=== PATIENT | female | born 1965 | race Caucasian/White ===

== ENCOUNTER → 2017-01-17 | Outpatient (CLI) | payer MEDICAID, OTHER ==
--- NOTE | 2017-01-17 11:18 | USB ---
Reason for exam: follow-up at short interval from prior study. History: Patient had first child at age 33. Benign US biopsy breast VAD RT of the right breast, July 09, 2016. Benign excisional biopsy of the left breast, 2007. Took hormonal contraceptives for 8 years beginning at age 21. Physical Findings: Nurse did not find any significant physical abnormalities on exam. US Breast BILAT Right breast ultrasound includes all four quadrants, the retroareolar region and axilla. Finding demonstrates a 0.4 x 0.3 x 0.3cm round, hypoechoic lesion at 12 o'clock for which a 6 month follow up is recommended, a 0.5 x 0.6 x 0.2cm oval, mixed lesion at 7 o'clock verses 6 x 8 x 4mm previously compatible with cyst cluster decreased in size and the 7 o'clock biopsied fibroadenoma is no longer seen. Left breast ultrasound includes all four quadrants, the retroareolar region and axilla. Finding demonstrates a 0.7 x 0.7 x 0.2cm mixed lesion at 8 o'clock verses a 8 x 9 x 4mm previously, cyst cluster now decreased in size and a 0.6 x 0.7 x0.7cm mixed lesion at the posterior nipple, not seen previously, for which a biopsy is recommended. These results were verbally communicated with the patient and result sheet given to the patient on 01/17/17. ASSESSMENT: Suspicious, BI-RAD 4 RECOMMENDATION: 1. Surgical consultation and ultrasound core biopsy of the left breast. 2. A 6 month follow up ultrasound right breast for the 12:00 lesion. Called with mammographic findings and has scheduled an appointment for the patient for 01/31/17 at 2:20pm with Dr. Jennings. PRELIMINARY REPORT CALLED AND FAXED TO DR. JENNINGS ON 01/17/17 AT 300/TMP. [facility]
== END ==
LOC: RADUSWWP 09:03
PROVIDERS: ATTEND Surgery
DX: R92.8 Other abnormal and inconclusive findings on diagnostic imaging of breast (principal)

== ENCOUNTER → 2017-01-31 | Day surgery (SDC) | payer MEDICAID, OTHER ==
[~2017-01-31] MED LIST: BACITRACIN OINT 1 EACH PACKET TOPICAL ONE; LIDOCAINE 1% INJ 10MG/ML (20 ML MDV) ONE; LIDOCAINE 1%-EPI 1:100,000 20 ML VIAL ONE; SODIUM BICARB 4% 5 ML VIAL (0.48 MEQ/ML) ONE
--- NOTE | 2017-01-31 13:13 | USB ---
EXAMINATION TYPE: US biopsy breast VAD LT, MG diagnostic mammo LT wo CAD DATE OF EXAM: 01/31/2017 12:55 PM CLINICAL HISTORY: R92.8 Abnormal Mammogram. Abnormal ultrasound. TECHNIQUE: Ultrasound guided core biopsy of left breast with clip placement and follow-up two-view mammogram. COMPARISON: Complete breast ultrasound January 17, 2017 and older studies. FINDINGS: The procedure of ultrasound guided core biopsy was explained to the patient. Benefits, alternatives, and risks were discussed. An informed consent was then obtained. The patient was placed in supine positioning for imaging and for the procedure. Preprocedure imaging redemonstrates overall slightly ill-defined heterogeneous hypoechoic lesion measuring 1.2 cm on long axis subareolar region. The overlying skin was prepped and draped in usual sterile fashion. Lidocaine buffered with bicarbonate was used as anesthetic into the skin. Lidocaine with epinephrine is used as anesthetic into the deeper tissue up to area of concern in the left breast. Under ultrasound guidance, a 12-gauge vacuum assisted biopsy gun device was used to obtain 4 core samples. Following this, a biopsy clip was left in lesion. The patient tolerated the procedure well without any immediate complication. The patient was kept in the radiology department for short stay after the procedure and then discharged home in stable condition. Postprocedure mammogram shows successful deployment of clip this is near area of concern on original 3-D mammogram June 10, 2016 IMPRESSION: Successful, uncomplicated ultrasound guided core biopsy of area of concern in the left breast, full pathology results to follow. Intermediate index of suspicion noted at time of procedure. Pathology Results: Benign BREAST, LEFT, ULTRASOUND GUIDED CORE BIOPSY: CORES OF FIBROADENOMA WITH FIBROCYSTIC CHANGE (CYST FORMATION, APOCRINE METAPLASIA, ADENOSIS, AND DUCT HYPERPLASIA) Recommendation Follow up ultrasound of both breasts in 6 months. (6 month follow up right breast ultrasound for the 12 o'clock lesion as mentioned on 01/17/17) KATE
== END ==
LOC: RADUSWWP 12:07
PROVIDERS: ATTEND Surgery
DX: D24.2 Benign neoplasm of left breast (principal); N60.02 Solitary cyst of left breast; N60.82 Other benign mammary dysplasias of left breast; N60.22 Fibroadenosis of left breast; N60.92 Unspecified benign mammary dysplasia of left breast; R92.8 Other abnormal and inconclusive findings on diagnostic imaging of breast
CPT/HCPCS: 88305; 19083; G0206; A4648; J2001

== ENCOUNTER → 2017-08-29 | Outpatient (CLI) | payer MEDICAID ==
--- NOTE | 2017-08-29 11:33 | MM ---
Reason for exam: follow-up at short interval from prior study. Last mammogram was performed 7 months ago. History: Patient had first child at age 33. Benign US biopsy breast VAD LT of the left breast, January 31, 2017. Benign US biopsy breast VAD RT of the right breast, July 09, 2016. Benign excisional biopsy of the left breast, 2007. Taking hormonal contraceptives for 12 years beginning at age 21. Physical Findings: Nurse did not find any significant physical abnormalities on exam. MG 3D Diag Mammo W/Cad POWER Bilateral CC and MLO view(s) were taken. Prior study comparison: January 31, 2017, left breast MG diagnostic mammo LT wo CAD. July 09, 2016, right breast MG diagnostic mammo RT wo CAD. The breast tissue is heterogeneously dense. This may lower the sensitivity of mammography. Previous mammotome biopsy in the right and left breast. Nodular asymmetry central right breast on the MLO view at a middle depth appears more defined. Otherwise, no significant change. These results were verbally communicated with the patient and result sheet given to the patient on 08/29/17. ASSESSMENT: Incomplete: need additional imaging evaluation, BI-RAD 0 RECOMMENDATION: Ultrasound of both breasts. (right breast for the asymmetry, left breast follow up after benign biopsy)
--- NOTE | 2017-08-29 11:42 | USB ---
Reason for exam: additional evaluation requested from abnormal screening. History: Patient had first child at age 33. Benign US biopsy breast VAD LT of the left breast, January 31, 2017. Benign US biopsy breast VAD RT of the right breast, July 09, 2016. Benign excisional biopsy of the left breast, 2007. Taking hormonal contraceptives for 12 years beginning at age 21. US Breast BILAT Technologist: Leela Kaplan Right breast ultrasound includes all four quadrants, the retroareolar region and axilla. Finding demonstrates a 0.4 x 0.3 x 0.4cm hypoechoic lesion at 12 o'clock, stable, can be reassessed again in 6 months, a 0.5 x 0.2 x 0.5cm mixed lesion at 7 o'clock versus 5 x 3 x 7mm previously, likely cyst cluster, a 0.6 x 0.4 x 0.7cm hypoechoic solid appearing lesion at 7 o'clock, new, 6 month follow up recommended and a 0.9 x 0.3 x 0.7cm hypoechoic lesion at 9 o'clock, possibly a cyst with artifact or debris, new for which a 6 month follow up is recommended. Left breast ultrasound includes all four quadrants, the retroareolar region and axilla. Finding demonstrates a 0.6 x 0.3 x 0.6cm mixed lesion at 8 o'clock versus 7 x 3 x 7mm likely cyst cluster at 8 o'clock and a 0.7 x 0.8 x 0.6cm mixed lesion at the posterior nipple, biopsied, benign. These results were verbally communicated with the patient and result sheet given to the patient on 08/29/17. ASSESSMENT: Probably benign, BI-RAD 3 RECOMMENDATION: Follow-up diagnostic mammogram and ultrasound of the right breast in 6 months.
== END | disposition home or self-care (01) ==
LOC: RADMAMWWP 07:34
PROVIDERS: ATTEND Surgery
DX: N63.10 Unspecified lump in the right breast, unspecified quadrant (principal)
CPT/HCPCS: 76641; G0204; G0279

== ENCOUNTER → 2018-02-27 | Outpatient (CLI) | payer MEDICAID ==
--- NOTE | 2018-02-27 11:28 | MM ---
Reason for exam: additional evaluation requested from prior study. Last mammogram was performed 6 months ago. History: Patient had first child at age 33. Benign US biopsy breast VAD LT of the left breast, January 31, 2017. Benign US biopsy breast VAD RT of the right breast, July 09, 2016. Benign excisional biopsy of the left breast, 2007. Taking hormonal contraceptives beginning at age 21. 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 MG 3D Diag Mammo W/Cad POWER Bilateral CC and MLO view(s) were taken. Prior study comparison: August 29, 2017, bilateral MG 3d diag mammo w/cad POWER. January 31, 2017, left breast MG diagnostic mammo LT wo CAD. The breast tissue is heterogeneously dense. This may lower the sensitivity of mammography. Previous mammotome biopsy in the right and left breast. Palpable marker right upper outer quadrant. No significant new findings when compared with previous films. These results were verbally communicated with the patient and result sheet given to the patient on 02/27/18. ASSESSMENT: Incomplete: need additional imaging evaluation, BI-RAD 0 RECOMMENDATION: Ultrasound of both breasts.
--- NOTE | 2018-02-27 11:34 | USB ---
Reason for exam: follow-up at short interval from prior study. History: Patient had first child at age 33. Benign US biopsy breast VAD LT of the left breast, January 31, 2017. Benign US biopsy breast VAD RT of the right breast, July 09, 2016. Benign excisional biopsy of the left breast, 2007. Taking hormonal contraceptives beginning at age 21. US Breast BILAT Right complete breast ultrasound includes all four quadrants, the retroareolar region and axilla. Finding demonstrates a 0.3 x 0.4 x 0.4cm hypoechoic lesion at 12 o'clock stable for a year, benign, a 0.4 x 0.2 x 0.4cm mixed lesion at 7 o'clock, stable, likely cyst cluster, a 0.5 x 0.3 x 0.7cm hypoechoic lesion at 7 o'clock, previously 6 x 4 x 7mm stable to smaller, suggests a benign etiology, a 0.6 x 0.4 x 0.4cm mixed lesion at 9 o'clock, cyst cluster versus complex cyst, not seen previously and a 0.7 x 0.4 x 0.7cm hypoechoic palpable lesion at 9 o'clock, versus 9 x 3 x 7mm previously, now appears as a benign cyst. Left complete breast ultrasound includes all four quadrants, the retroareolar region and axilla. Finding demonstrates a 0.6 x 0.3 x 0.5cm mixed lesion at 8 o'clock versus 6 x 3 x 6mm, stable, benign and a 0.5 x 0.7 x 0.6cm mixed lesion at the posterior nipple with clip, previously biopsied. These results were verbally communicated with the patient and result sheet given to the patient on 02/27/18. ASSESSMENT: Probably benign, BI-RAD 3 RECOMMENDATION: Follow-up diagnostic mammogram of both breasts in 1 year.
== END | disposition home or self-care (01) ==
LOC: RADMAMWWP 08:51
PROVIDERS: ATTEND Surgery
DX: N63.10 Unspecified lump in the right breast, unspecified quadrant (principal); N63.20 Unspecified lump in the left breast, unspecified quadrant; R92.8 Other abnormal and inconclusive findings on diagnostic imaging of breast
CPT/HCPCS: 77062; 77066

== ENCOUNTER 2019-02-23 07:33 | Day surgery (SDC) | payer MEDICAID, OTHER ==
[2019-02-20 15:32] VITALS: BMI 24.7
[~2019-02-23 07:33] MED LIST changes: -BACITRACIN OINT 1 EACH PACKET TOPICAL ONE; +LACTATED RINGERS 1,000 ML IV SCH; +LIDOCAINE 1% 20 ML VIAL (10MG/ML) FOR IV START INTRADERMA PRN; -LIDOCAINE 1% INJ 10MG/ML (20 ML MDV) ONE; -LIDOCAINE 1%-EPI 1:100,000 20 ML VIAL ONE; -SODIUM BICARB 4% 5 ML VIAL (0.48 MEQ/ML) ONE
[2019-02-23 07:51] VITALS: RESP 16; TEMP 97.8
[2019-02-23] MEDS ORDERED: PROPOFOL 10 MG/ML 20 ML VIAL IV ONE (09:14)
--- NOTE | 2019-02-23 09:21 | P.GSHP ---
History of Present Illness H&P Date: 02/23/19 Chief Complaint: Screening Patient here today for colonoscopy. She has not had one previously. No bowel related complaints. No family history of colon cancer. Past Medical History Past Medical History: Asthma Additional Past Medical History / Comment(s): recent dental work related to infected tooth placed on keflex History of Any Multi-Drug Resistant Organisms: None Reported Past Surgical History: Breast Surgery, Tonsillectomy Past Anesthesia/Blood Transfusion Reactions: Family History of Problems w/ Anesthesia, Postoperative Nausea & Vomiting (PONV) Additional Past Anesthesia/Blood Transfusion Reaction / Comment(s): last surgery when awakening attempted to pull out IV's. mother PONV Smoking Status: Never smoker - Past Family History Father Family Medical History: Cancer Additional Family Medical History / Comment(s): leukemia Medications and Allergies Home Medications Medication Instructions Recorded Confirmed Type ALPRAZolam [Xanax] 0.25 mg PO Q8HR PRN 03/30/16 02/23/19 History Acetaminophen [Tylenol] 325 mg PO Q4H PRN 02/20/19 02/23/19 History Albuterol Inhaler [Ventolin Hfa 1 - 2 puff INHALATION RT-Q6H PRN 02/20/19 02/20/19 History Inhaler] Budesonide/Formoterol Fumarate 2 puff INHALATION BID 02/20/19 02/23/19 History [Symbicort 160-4.5 Mcg Inhaler] Cephalexin [Keflex] 500 mg PO Q6HR 02/20/19 02/23/19 History Multivitamins, Thera [Multivitamin 1 tab PO DAILY 02/20/19 02/20/19 History (formulary)] Allergies Allergy/AdvReac Type Severity Reaction Status Date / Time No Known Allergies Allergy Verified 02/23/19 07:53 Surgical - Exam Vital Signs Temp Pulse Resp BP Pulse Ox 97.8 F 80 16 124/60 98 02/23/19 07:50 02/23/19 07:50 02/23/19 07:50 02/23/19 07:50 02/23/19 07:50 Physical exam: General: Well-developed, well-nourished HEENT: Normocephalic, sclerae nonicteric Abdomen: Nontender, nondistended Extremities: No edema Neuro: Alert and oriented Assessment and Plan (1) Colon cancer screening Narrative/Plan: Will proceed with colonoscopy Current Visit: Yes Status: Acute Code(s): Z12.11 - ENCOUNTER FOR SCREENING FOR MALIGNANT NEOPLASM OF COLON SNOMED Code(s): 842224680
--- NOTE | 2019-02-23 09:42 | P.PCN ---
Date of Procedure: 02/23/19 Procedure(s) Performed: PREOPERATIVE DIAGNOSIS: Colon cancer screening POSTOPERATIVE DIAGNOSIS: Sigmoid colon polyp PROCEDURE: Colonoscopy with snare polypectomy ANESTHESIA: MAC SURGEON: Jose Jennings M.D. SPECIMENS: Sigmoid polyp ENDOSCOPIC PROCEDURE: The patient was placed on the endoscopy table in the left decubitus position. The Olympus colonoscope was inserted into the anus and passed under direct visualization to the base of the cecum. The appendiceal orifice was visualized. From that point the scope was slowly withdrawn inspecting all surfaces carefully. There were no neoplastic inflammatory or polypoid lesions throughout the cecum, ascending, transverse, and descending colon. In the sigmoid colon there was a small polyp that was removed using the snare with cautery technique. No visible diverticulosis. Digital rectal examination was normal. The patient was taken to the recovery room in stable condition per anesthesia guidelines. RECOMMENDATIONS: Await biopsy results.
[2019-02-23 10:00] VITALS: BP 141/87; PULSE 88
== END 2019-02-23 10:32 | disposition home or self-care (01) ==
LOC: ORWHC2ENDO 07:33
PROVIDERS: ATTEND Surgery
DX: Z12.11 Encounter for screening for malignant neoplasm of colon (principal); D12.5 Benign neoplasm of sigmoid colon; J45.909 Unspecified asthma, uncomplicated; Z79.51 Long term (current) use of inhaled steroids; Z79.899 Other long term (current) drug therapy
CPT/HCPCS: 81025; 88305; 45385; J2704

== ENCOUNTER → 2019-03-09 | Outpatient (CLI) | payer MEDICAID, OTHER ==
--- NOTE | 2019-03-09 09:32 | MM ---
Reason for exam: additional evaluation requested from prior study. Last mammogram was performed 1 year ago. History: Patient had first child at age 33. Benign US biopsy breast VAD LT of the left breast, January 31, 2017. Benign US biopsy breast VAD RT of the right breast, July 09, 2016. Benign excisional biopsy of the left breast, 2007. Took hormonal contraceptives for 5 years beginning at age 21. 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 MG 3D Diag Mammo W/Cad POWER Bilateral CC and MLO view(s) were taken. Prior study comparison: February 27, 2018, bilateral MG 3d diag mammo w/cad POWER. August 29, 2017, bilateral MG 3d diag mammo w/cad POWER. The breast tissue is heterogeneously dense. This may lower the sensitivity of mammography. Previous mammotome biopsy in the right and left breast. There is chronic nodularity in the right breast. There is no discrete abnormality. These results were verbally communicated with the patient and result sheet given to the patient on 03/09/19. ASSESSMENT: Incomplete: need additional imaging evaluation, BI-RAD 0 RECOMMENDATION: Ultrasound of the left breast. (palpable by nurse)
--- NOTE | 2019-03-09 09:34 | USB ---
Reason for exam: additional evaluation requested from abnormal screening. History: Patient had first child at age 33. Benign US biopsy breast VAD LT of the left breast, January 31, 2017. Benign US biopsy breast VAD RT of the right breast, July 09, 2016. Benign excisional biopsy of the left breast, 2007. Took hormonal contraceptives for 5 years beginning at age 21. US Breast Limited LT Left limited breast ultrasound including focal area of concern, retroareolar and axilla demonstrates a 5 x 2 x 7mm oval, lobular lesion too small to characterize at 8 o'clock and a 8 x 8 x 10mm lobular, solid, hypoechoic lesion at the posterior nipple, previously biopsied with clip. These results were verbally communicated with the patient and result sheet given to the patient on 03/09/19. ASSESSMENT: Benign, BI-RAD 2 RECOMMENDATION: Routine screening mammogram of both breasts in 1 year.
== END | disposition home or self-care (01) ==
LOC: RADMAMWWP 07:58
PROVIDERS: ATTEND Surgery
DX: R92.8 Other abnormal and inconclusive findings on diagnostic imaging of breast (principal)
CPT/HCPCS: 77062; 77066

== ENCOUNTER → 2020-02-01 | Outpatient (CLI) | payer MEDICAID ==
--- NOTE | 2020-02-01 11:57 | ECHOS ---
STRESS ECHOCARDIOGRAM INDICATIONS: Chest pain. MEDICATIONS: Symbicort, Mobic, vitamin, albuterol. BASELINE HEART RATE: 79 BASELINE BLOOD PRESSURE: 127/86 MAXIMUM HEART RATE: 153 MAXIMUM BLOOD PRESSURE: 179/85 85% MPHR: 143 100% MPHR: 168 METS: 13 MAXIMUM STAGE REACHED: 4 TOTAL EXERCISE TIME: 12:08 CLINICAL INFORMATION: Baseline EKG shows sinus rhythm, normal axis, normal intervals. Patient exercised on Parviz protocol for a total of 12 minutes achieving 15 METS, 85% of predicted maximal heart rate without chest pain or diagnostic ST segment depression. Baseline echo shows normal left ventricular size, wall motion, systolic function post exercise. There is normal hyperdynamic response of all segments of myocardium noted. CONCLUSION: 1. Excellent exercise tolerance. 2. Negative stress test by EKG criteria. 3. Negative stress echo. MMODL / IJN: [id number] /
== END | disposition home or self-care (01) ==
LOC: RADNMMAIN 08:36
PROVIDERS: ATTEND Internal Medicine Cardiovascular Disease
DX: R07.9 Chest pain, unspecified (principal)
CPT/HCPCS: 93351

== ENCOUNTER → 2020-02-08 | Outpatient (CLI) | payer MEDICAID ==
--- NOTE | 2020-02-08 10:12 | XR ---
EXAMINATION TYPE: XR chest 2V DATE OF EXAM: 02/08/2020 COMPARISON: NONE HISTORY: Right-sided chest wall pain intermittently for 2 weeks. History of asthma. TECHNIQUE: Frontal and lateral views of the chest are obtained. FINDINGS: There is no focal air space opacity, pleural effusion, or pneumothorax seen. The cardiac silhouette size is within normal limits. The osseous structures are intact. IMPRESSION: No acute cardiopulmonary process.
== END | disposition home or self-care (01) ==
LOC: RADXRMAIN 09:17
PROVIDERS: ATTEND Family Medicine
DX: R07.9 Chest pain, unspecified (principal); R06.00 Dyspnea, unspecified
CPT/HCPCS: 71046

== ENCOUNTER → 2020-05-20 | Outpatient (CLI) | payer MEDICAID ==
--- NOTE | 2020-05-22 11:27 | MM ---
Reason for exam: screening (asymptomatic). Last mammogram was performed 1 year and 2 months ago. History: Patient is postmenopausal and had first child at age 33. Benign US biopsy breast VAD LT of the left breast, January 31, 2017. Benign US biopsy breast VAD RT of the right breast, July 09, 2016. Benign excisional biopsy of the left breast, 2007. Took hormonal contraceptives for 5 years beginning at age 21. Physical Findings: A clinical breast exam by your physician is recommended on an annual basis and results should be correlated with mammographic findings. MG 3D Screening Mammo W/Cad Bilateral CC and MLO view(s) were taken. Prior study comparison: March 09, 2019, bilateral MG 3d diag mammo w/cad POWER. February 27, 2018, bilateral MG 3d diag mammo w/cad POWER. June 10, 2016, bilateral MG 3d screening mammo w/cad. The breast tissue is heterogeneously dense. This may lower the sensitivity of mammography. Previous mammotome biopsy in the right and left breast. Global asymmetry right upper outer quadrant posteriorly. No significant changes when compared with prior studies. ASSESSMENT: Benign, BI-RAD 2 RECOMMENDATION: Routine screening mammogram of both breasts in 1 year.
== END | disposition home or self-care (01) ==
LOC: RADMAMWWP 13:14
PROVIDERS: ATTEND Obstetrics & Gynecology
DX: Z12.31 Encounter for screening mammogram for malignant neoplasm of breast (principal)
CPT/HCPCS: 77063; 77067

== ENCOUNTER → 2020-07-21 | Outpatient (CLI) | payer MEDICAID ==
--- NOTE | 2020-07-21 19:13 | BD ---
EXAMINATION TYPE: Axial Bone Density DATE OF EXAM: 07/21/2020 COMPARISON: NONE CLINICAL HISTORY: Post menopausal screening Height: 71.2 IN Weight: 179 LBS RISK FACTORS HISTORY OF: Active: YES Postmenopausal woman: AGE 50 Take estrogen and/or progesterone medications: NOT NOW How long: TOOK CONTROL OFF AND ON FOR 20 YEARS MEDICATIONS: Additional Medications: CALCIUM, VIT D, INHALERS, EXAM MEASUREMENTS: Bone mineral densitometry was performed using the [employer] System. Bone mineral density as measured about the Lumbar spine is: ----- L1-L4(G/cm2): 1.256 T Score Values are as follows: ----- L2: 0.6 ----- L3: 0.7 ----- L4: 0.2 ----- L1-L4: 0.6 Bone mineral density BASELINE Bone mineral density about the R hip (g/cm2): 0.970 Bone mineral density about the L hip (g/cm2): 1.031 T Score values are as follows: -----R Neck: -0.5 -----L Neck: -0.1 -----R Total: -0.2 -----L Total: 0.1 Bone mineral density BASELINE IMPRESSION: Normal (Values between +1 and -1 indicate normal bone mass). Consider repeating this study in 5 year s or sooner if there is some new clinical indication. NOTE: T-SCORE=SD OF THE YOUNG ADULT MEAN.
== END | disposition home or self-care (01) ==
LOC: RADBDWWP 07:16
PROVIDERS: ATTEND Obstetrics & Gynecology
DX: N95.1 Menopausal and female climacteric states (principal)
CPT/HCPCS: 77080

== ENCOUNTER → 2021-07-30 | Outpatient (CLI) | payer MEDICAID ==
--- NOTE | 2021-07-31 12:32 | MM ---
Reason for exam: screening (asymptomatic). Last mammogram was performed 1 year and 2 months ago. History: Patient is postmenopausal and had first child at age 33. Benign US biopsy breast VAD LT of the left breast, January 31, 2017. Benign US biopsy breast VAD RT of the right breast, July 09, 2016. Benign excisional biopsy of the left breast, 2007. Took hormonal contraceptives for 5 years beginning at age 21. Physical Findings: A clinical breast exam by your physician is recommended on an annual basis and results should be correlated with mammographic findings. MG 3D Screening Mammo W/Cad Bilateral CC and MLO view(s) were taken. Prior study comparison: May 20, 2020, bilateral MG 3d screening mammo w/cad. March 09, 2019, bilateral MG 3d diag mammo w/cad POWER. The breast tissue is heterogeneously dense. This may lower the sensitivity of mammography. Previous mammotome biopsy in the right breast. No significant changes when compared with prior studies. ASSESSMENT: Benign, BI-RAD 2 RECOMMENDATION: Routine screening mammogram of both breasts in 1 year.
== END | disposition home or self-care (01) ==
LOC: RADMAMWWP 08:19
PROVIDERS: ATTEND Obstetrics & Gynecology
DX: Z12.31 Encounter for screening mammogram for malignant neoplasm of breast (principal)
CPT/HCPCS: 77063; 77067

== ENCOUNTER → 2021-09-11 | Outpatient (CLI) | payer MEDICAID, OTHER | END | disposition home or self-care (01) | LOC: LABWHC1 11:56 | PROVIDERS: ATTEND Emergency Medicine | DX: U07.1 COVID-19 (principal) | CPT/HCPCS: 87635 ==

== ENCOUNTER → 2021-10-02 | Outpatient (CLI) | payer MEDICAID, OTHER ==
--- NOTE | 2021-10-02 09:38 | XR ---
EXAMINATION TYPE: XR chest 2V DATE OF EXAM: 10/02/2021 COMPARISON: Chest x-ray 02/08/2020 HISTORY: Dyspnea, asthma TECHNIQUE: Frontal and lateral views of the chest are obtained. FINDINGS: There is no focal air space opacity, pleural effusion, or pneumothorax seen. The cardiac silhouette size is within normal limits. The osseous structures are intact. IMPRESSION: No acute cardiopulmonary process.
== END | disposition home or self-care (01) ==
LOC: RADXRMAIN 08:49
PROVIDERS: ATTEND Internal Medicine Critical Care Medicine
DX: R06.00 Dyspnea, unspecified (principal); J45.998 Other asthma
CPT/HCPCS: 71046

== ENCOUNTER → 2021-12-31 | Outpatient (CLI) | payer MEDICAID ==
--- NOTE | 2021-12-31 11:33 | CT ---
EXAMINATION TYPE: CT chest w con DATE OF EXAM: 12/31/2021 COMPARISON: None HISTORY: RT Clavicular mass CT DLP: 691 mGycm Automated exposure control for dose reduction was used. TECHNIQUE: CT scan of the chest is performed with IV Contrast, patient injected with 100mL mL of Isovue 300. UT P Images are created on CT scanner and reviewed. 3D reconstructed images are created on an [employer] workstation and reviewed. FINDINGS: LUNGS: The lungs are grossly clear, there is no concerning parenchymal mass or nodule identified. T here is no pleural effusion or pneumothorax seen. The tracheobronchial tree is patent. MEDIASTINUM: There are no greater than 1 cm hilar or mediastinal lymph nodes. No pericardial effusi on is seen. OTHER: Clavicle is intact. Hypertrophic and degenerative changes spine. Sclerosis involving the righ t-sided rib lesion is nonspecific may be related to bone island. Correlate with bone scan as clinical ly warranted. A gallstone incidentally noted.. Suspected anterior right lobe thyroid nodule IMPRESSION: 1. No definite clavicular or supraclavicular mass. 2. Correlate lithiasis. 3. Right thyroid nodule incidentally noted.
== END | disposition home or self-care (01) ==
LOC: RADCTMAIN 10:48
PROVIDERS: ATTEND Family Medicine
DX: E04.1 Nontoxic single thyroid nodule (principal)
CPT/HCPCS: 71260; Q9967

== ENCOUNTER → 2022-02-10 | Outpatient (CLI) | payer MEDICAID ==
--- NOTE | 2022-02-10 21:06 | US ---
EXAMINATION TYPE: US abdomen complete DATE OF EXAM: 02/10/2022 COMPARISON: NONE CLINICAL HISTORY: R10.84 ABDOMINAL PAIN. EXAM MEASUREMENTS: Liver Length: 12.0 cm Gallbladder Wall: 0.2 cm CBD: 0.2 cm Spleen: 9.8 cm Right Kidney: 10.1 x 4.1 x 4.6 cm Left Kidney: 10.1 x 4.4 x 4.5 cm Extensive midline bowel gas, technically difficult limited study Pancreas: partially obscured by bowel gas, wnl as seen Liver: partially obscured by bowel gas, wnl as seen Gallbladder: large stone Evidence for sonographic Hawkins's sign: no CBD: wnl Spleen: wnl Right Kidney: partially obscured by bowel gas, wnl as seen Left Kidney: partially obscured by bowel gas, wnl as seen Upper IVC: wnl Abd Aorta: wnl as seen, mid distal obscured by overlying bowel gas IMPRESSION: 1. Cholelithiasis. 2. Exam is limited due to bowel gas.
== END | disposition home or self-care (01) ==
LOC: RADUSWWP 13:04
PROVIDERS: ATTEND Family Medicine
DX: K80.20 Calculus of gallbladder without cholecystitis without obstruction (principal); R14.3 Flatulence
CPT/HCPCS: 76700

== ENCOUNTER → 2022-02-10 | Outpatient (CLI) | payer MEDICAID ==
[2022-02-10 08:46] LABS: HCT 45.3 % (34.0-46.0); HGB 14.8 gm/dL (11.4-16.0); MCH 29.6 pg (25.0-35.0); MCHC 32.6 g/dL (31.0-37.0); MCV 90.8 fL (80.0-100.0); Platelet Count 234 k/uL (150-450); WBC 4.6 k/uL (3.8-10.6)
[2022-02-10 08:54] LABS: ALT 15 U/L (4-34); AST 26 U/L (14-36); African American GFR (CKD) >90 (>60 ml/min/1.73 sqM); Albumin 4.7 g/dL (3.5-5.0); Albumin/Globulin Ratio 1.5; Alkaline Phosphatase 77 U/L (38-126); Amylase 70 U/L (30-110); Anion Gap 9 mmol/L; Blood Urea Nitrogen 17 mg/dL (7-17); Calcium 9.6 mg/dL (8.4-10.2); Carbon Dioxide 27 mmol/L (22-30); Chloride 104 mmol/L (98-107); Globulin 3.1 g/dL; Glucose 105 mg/dL (74-99); Lipase 97 U/L (23-300); Non-African American GFR(CKD) 81 (>60 ml/min/1.73 sqM); Potassium 4.3 mmol/L (3.5-5.1); Sodium 140 mmol/L (137-145); Total Bilirubin 0.8 mg/dL (0.2-1.3); Total Protein 7.8 g/dL (6.3-8.2)
== END | disposition home or self-care (01) ==
LOC: LABWHC1 08:04
PROVIDERS: ATTEND Family Medicine
DX: R10.84 Generalized abdominal pain (principal)
CPT/HCPCS: 36415; 80053; 82150; 83690; 85027; 85379

== ENCOUNTER 2022-03-09 10:43 | Day surgery (SDC) | payer MEDICAID ==
[2022-03-05 12:43] VITALS: BMI 26.2
[~2022-03-09 10:43] MED LIST changes: +ACETAMINOPHEN TAB 500 MG TAB PO PRN; +DEXAMETHASONE SOD PHOSPHATE 4 MG/ML 1 ML VIAL IV ONE; +HEPARIN SODIUM,PORCINE/PF 5,000 UNIT/0.5 ML SYRINGE SQ PRN; +LIDOCAINE 1% (10MG/ML) FOR IV START INTRADERMA PRN; -LIDOCAINE 1% 20 ML VIAL (10MG/ML) FOR IV START INTRADERMA PRN; +METOCLOPRAMIDE 5 MG/ML 2 ML VIAL IVP PRN; +ONDANSETRON 4 MG/2 ML VIAL IVP ONE; +SCOPOLAMINE 1 MG/72 HR PATCH TRANSDERM ONE
[2022-03-09] MEDS ORDERED: ROCURONIUM 10 MG/ML (5 ML VIAL) IV ONE (12:10)
[2022-03-09] MEDS ORDERED: PROPOFOL 10 MG/ML 20 ML VIAL IV ONE (12:10)
[2022-03-09] MEDS ORDERED: MIDAZOLAM 2 MG/2 ML VIAL ONE (12:10)
[2022-03-09] MEDS ORDERED: fentaNYL (PF) 50 MCG/ML 2 ML AMP ONE (12:10)
[2022-03-09] MEDS ORDERED: LIDOCAINE 2% INJ 20 MG/ML (2 ML VIAL) ONE (12:10)
[2022-03-09] MEDS ORDERED: GLYCOPYRROLATE 0.2 MG/ML 2 ML VIAL ONE (12:10)
[2022-03-09] MEDS ORDERED: NEOSTIGMINE 1 MG/ML 10 ML VIAL ONE (12:10)
[2022-03-09] MEDS ORDERED: BUPIVACAIN-EPI 0.25%-1:200,000 30 ML VIAL SQ ONE (12:34)
[2022-03-09] MEDS ORDERED: LACTATED RINGERS 1,000 ML IV ONE (13:12)
--- NOTE | 2022-03-09 13:24 | P.OP ---
Date of Procedure: 03/09/22 Procedure(s) Performed: PREOPERATIVE DIAGNOSIS: Chronic cholecystitis POSTOPERATIVE DIAGNOSIS: Same PROCEDURE: Laparoscopic cholecystectomy SURGEON: Dick EBL: Minimal see anesthesia record ANESTHESIA: Gen. COMPLICATIONS: None OPERATIVE PROCEDURE: The patient was brought and placed on the operating room table in the supine position. The patient was placed under general anesthesia at that time. The abdomen was prepped and draped in the usual sterile fashion. A small vertical infraumbilical incision was made. The fascia was grasped with the Domingo forceps. The fascia was retracted anteriorly. The Veress needle was advanced into the peritoneal cavity. The saline drop test was normal. Insufflation took place up to 15 mmHg. A 5 mm optical trocar was advanced and the peritoneal cavity. 2 additional 5 mm trochars were placed in the right upper quadrant under direct visualization. A 12 mm trocar was advanced into the epigastric incision site. The gallbladder was chronically inflamed. There were some adhesions between the pericolonic fat and the gallbladder. The duodenal sweep was also adherent to the gallbladder. A few small vessels were clipped using the clip perioperative manager as we were dissecting these adhesions. The gallbladder was retracted superiorly and laterally. The peritoneum overlying the infundibulum was bluntly dissected. The patient's cystic duct was visualized. The junction between the cystic duct common and hepatic duct was identified. The critical view of safety was achieved after blunt dissection. The cystic duct was then divided after placement of 3 12 mm clips on the patient's side and one on the specimen side. The cystic artery was identified and clipped as well. A small vessel was seen along the gallbladder fossa and clipped as well. The gallbladder was then removed from the liver bed using electrocautery. The gallbladder was then removed from the epigastric trocar site with an Endo Catch bag. The gallbladder fossa was irrigated with saline. There was no evidence of any bleeding or biliary drainage seen. The fascia at the 12 millimeter site was closed using a Babatunde-Maribel 0 Vicryl stitch. The trochars were then removed. The skin at all 4 sites was closed using a 4-0 Monocryl stitch. Skin glue was utilized on the incision sites. At the end of this procedure the sponge and needle counts were correct. DISPOSITION: Stable to the recovery room
[2022-03-09] MEDS ORDERED: ACETAMINOPHEN TAB 325 MG TAB PO SCH (13:30)
[2022-03-09] MEDS ORDERED: traMADol 50 MG TAB PO SCH (13:30)
[2022-03-09 13:31] VITALS: TEMP 97.6
[2022-03-09] MEDS ORDERED: KETOROLAC 15 MG/ML 1 ML VIAL IVP ONE ×2 (13:32→13:34)
[2022-03-09] MEDS: HYDROmorphone 0.5 MG/0.5 ML SYRINGE IVP PRN ×3 (13:35→14:00)
[2022-03-09] MEDS ORDERED: ALBUTEROL NEBULIZED 2.5 MG/3 ML INHALATION ONE (14:05)
[2022-03-09 15:03] VITALS: RESP 16
[2022-03-09 15:26] VITALS: BP 118/71; PULSE 58
[2022-03-09] MEDS ORDERED: IBUPROFEN 600 MG TAB PO SCH (16:30)
== END 2022-03-09 15:45 | disposition home or self-care (01) ==
LOC: OR 10:43
PROVIDERS: ATTEND Surgery
DX: K80.10 Calculus of gallbladder with chronic cholecystitis without obstruction (principal); J45.909 Unspecified asthma, uncomplicated; Z79.51 Long term (current) use of inhaled steroids; Z98.890 Other specified postprocedural states; Z79.899 Other long term (current) drug therapy
CPT/HCPCS: 88304; 47562; J2250; J1100; J2710; J0690; J2405; J3010; J1885; J2704; J1170; J1644; J2001

== ENCOUNTER → 2022-08-05 | Outpatient (CLI) | payer MEDICAID ==
--- NOTE | 2022-08-06 07:45 | MM ---
Reason for Exam: Screening (asymptomatic). Last screening mammogram was performed 12 month(s) ago. Patient History: Menarche at age 14. First Full-Term at age 33. Late child-bearing (after 30). Postmenopausal. Hormonal Contraceptives, starting at age 21 for 5 years. 2007, Benign Excisional Biopsy on the left side. 01/31/2017, Benign Core Biopsy on the left side. 07/09/2016, Benign Core Biopsy on the right side. Risk Values: Rosa 5 year model risk: 2.4%. NCI Lifetime model risk: 16.5%. Prior Study Comparison: 03/09/2019 Bilateral Diagnostic Mammogram, [facility]. 05/20/2020 Bilateral Screening Mammogram, [facility]. 07/30/2021 Bilateral Screening Mammogram, [facility]. Tissue Density: The breast tissue is heterogeneously dense. This may lower the sensitivity of mammography. Findings: Analyzed By CAD. There is no suspicious group of microcalcifications or new suspicious mass in either breast. Overall Assessment: Benign, BI-RAD 2 Management: Screening Mammogram of both breasts in 1 year. A clinical breast exam by your physician is recommended on an annual basis and results should be correlated with mammographic findings. Electronically signed and approved by: Vamsi Cali M.D. Radiologis
== END | disposition home or self-care (01) ==
LOC: RADMAMWWP 08:51
PROVIDERS: ATTEND Obstetrics & Gynecology
DX: Z12.31 Encounter for screening mammogram for malignant neoplasm of breast (principal); Z78.0 Asymptomatic menopausal state
CPT/HCPCS: 77063; 77067

== ENCOUNTER 2022-09-23 08:08 | Emergency (ER) | payer OTHER, MEDICAID ==
[2022-09-23] MEDS ORDERED: KETOROLAC 15 MG/ML 1 ML VIAL IM STA (08:37)
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
--- NOTE | 2022-09-23 10:59 | XR ---
EXAMINATION TYPE: XR pelvis AP view DATE OF EXAM: 09/23/2022 COMPARISON: NONE HISTORY: Pain The osseous structures are intact and the joint spaces are preserved. No acute fracture is seen. Vi sualized bowel gas pattern is nonspecific. Bone island overlying the left iliac bone. IMPRESSION: 1. No acute fracture.
--- NOTE | 2022-09-23 11:03 | XR ---
EXAMINATION TYPE: XR thoracic spine 1V DATE OF EXAM: 09/23/2022 COMPARISON: NONE HISTORY: Pain TECHNIQUE: 1 views submitted FINDINGS: Limited single view demonstrates curvature of the spine. Pedicles are intact. Vertebral body height i s maintained. IMPRESSION: 1. Scoliosis. Otherwise, No definite abnormality in this single frontal view of thoracic spine..
[2022-09-23 11:15] VITALS: BP 154/111; PULSE 79; RESP 19; TEMP 98.1
== END 2022-09-23 11:29 | disposition home or self-care (01) ==
LOC: EC 08:08
DX: M41.9 Scoliosis, unspecified (principal); J45.909 Unspecified asthma, uncomplicated; M19.90 Unspecified osteoarthritis, unspecified site; Z79.1 Long term (current) use of non-steroidal anti-inflammatories (NSAID); Z79.52 Long term (current) use of systemic steroids; Z79.899 Other long term (current) drug therapy; V29.99XA Rider (driver) (passenger) of other motorcycle injured in unspecified traffic accident, initial encounter; Y92.411 Interstate highway as the place of occurrence of the external cause
CPT/HCPCS: 72170; 72020; 72125; 70450; 99284; 96372; J1885

== ENCOUNTER → 2022-10-09 | Outpatient (CLI) | payer OTHER ==
--- NOTE | 2022-10-09 09:21 | XR ---
EXAMINATION TYPE: XR cervical spine w flex/ext DATE OF EXAM: 10/09/2022 9:14 AM INDICATION: Patient age:Female; 56 years old; Reason for study: M54.2 cervicalgia; COMPARISON: CT 09/23/2022 TECHNIQUE: The cervical spine was imaged in frontal, lateral, odontoid and bilateral oblique. Flexion and extension views also performed. FINDINGS: The osseous structures show normal alignment without evidence of an acute fracture. There are osteoph ytes noted throughout the cervical spine on the anterior and lateral aspects of the vertebral bodies. The intervertebral disk spaces are preserved. Pedicles are intact. Soft tissues are within normal limits. The odontoid appears intact. No abnormal movement on flexion and extension views. Scattered n eural foraminal stenosis secondary to uncovertebral and facet joint arthropathy. IMPRESSION: 1. No fracture or dislocation. 2. Mild degenerative disc disease changes of the cervical spine.
== END | disposition home or self-care (01) ==
LOC: RADCTMAIN 08:37
PROVIDERS: ATTEND Family Medicine
DX: M50.30 Other cervical disc degeneration, unspecified cervical region (principal)
CPT/HCPCS: 72052

== ENCOUNTER → 2023-03-23 | Outpatient (CLI) | payer MEDICAID ==
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
== END | disposition home or self-care (01) ==
LOC: RADMRIMAIN 17:45
PROVIDERS: ATTEND Orthopaedic Surgery
DX: M19.011 Primary osteoarthritis, right shoulder (principal); S46.911A Strain of unspecified muscle, fascia and tendon at shoulder and upper arm level, right arm, initial encounter; X58.XXXA Exposure to other specified factors, initial encounter

== ENCOUNTER → 2023-09-13 | Outpatient (CLI) | payer MEDICAID ==
--- NOTE | 2023-09-14 16:26 | MM ---
Reason for Exam: Screening (asymptomatic). Last mammogram was performed 1 year(s) and 2 month(s) ago. Patient History: Menarche at age 14. First Full-Term at age 33. Late child-bearing (after 30). Postmenopausal. Patient has history of breast feeding. Hormonal Contraceptives, starting at age 21 for 5 years. 2007, Benign Excisional Biopsy on the left side. 01/31/2017, Benign Core Biopsy on the left side. 07/09/2016, Benign Core Biopsy on the right side. Risk Values: Rosa 5 year model risk: 2.4%. NCI Lifetime model risk: 16.3%. Prior Study Comparison: 05/20/2020 Bilateral Screening Mammogram, [facility]. 07/30/2021 Bilateral Screening Mammogram, [facility]. 08/05/2022 Bilateral MG 3D screening mammo w/cad, [facility]. Tissue Density: The breast tissue is heterogeneously dense. This may lower the sensitivity of mammography. Findings: Analyzed By CAD. Pattern appears stable. Slightly greater parenchymal tissue within the upper outer right breast compared to the left. No significant interval change is evident. Core marker is within the right breast. Core marker is within the left breast. No suspicious groups of microcalcifications, spiculated or lobular masses, architectural distortion or other secondary signs of malignancy are mammographically apparent. Overall Assessment: Benign, BI-RAD 2 Management: Screening Mammogram of both breasts in 1 year. A negative mammogram report should not preclude additional follow up of suspicious palpable abnormalities. Patient should continue monthly self breast exam. A clinical breast exam by your physician is recommended on an annual basis and results should be correlated with mammographic findings. Electronically signed and approved by: Prabhakar Shultz D.O. Radiologis
== END | disposition home or self-care (01) ==
LOC: RADMAMWWP 11:52
PROVIDERS: ATTEND Obstetrics & Gynecology
DX: Z12.31 Encounter for screening mammogram for malignant neoplasm of breast (principal); Z78.0 Asymptomatic menopausal state
CPT/HCPCS: 77063; 77067

== ENCOUNTER → 2024-11-09 | Outpatient (CLI) | payer MEDICAID ==
--- NOTE | 2024-11-12 07:48 | MM ---
Reason for Exam: Screening (asymptomatic). Last mammogram was performed 1 year(s) and 1 month(s) ago. Patient History: Menarche at age 14. First Full-Term at age 33. Late child-bearing (after 30). Postmenopausal. Patient has history of breast feeding. Hormonal Contraceptives, starting at age 21 for 5 years. 2007, Benign Excisional Biopsy on the left side. 01/31/2017, Benign Core Biopsy on the left side. 07/09/2016, Benign Core Biopsy on the right side. Risk Values: Rosa 5 year model risk: 2.7%. NCI Lifetime model risk: 15.6%. Prior Study Comparison: 07/30/2021 Bilateral Screening Mammogram, [facility]. 08/05/2022 Bilateral MG 3D screening mammo w/cad, [facility]. 09/13/2023 Bilateral MG 3D screening mammo w/cad, [facility]. Tissue Density: The breasts are heterogeneously dense, which may obscure small masses. Findings: Analyzed By CAD. Mammotome biopsy clips bilaterally are redemonstrated. There is no suspicious new group of microcalcifications or new suspicious mass in either breast. Overall Assessment: Benign, BI-RAD 2 Management: Screening Mammogram of both breasts in 1 year. . Patient should continue monthly self-breast exams. A clinical breast exam by your physician is recommended on an annual basis. This exam should not preclude additional follow-up of suspicious palpable abnormalities. Note on Rosa scores and lifetime risk: 1. A Rosa score greater than 3% is considered moderate risk. If this is the case, consider specialist referral to assess eligibility for a risk reducing agent. 2. If overall lifetime risk for the development of breast cancer is 20% or higher, the patient may qualify for future screening with alternating mammogram and breast MRI. [facility], , 11/12/2024 7:45 AM. Electronically signed and approved by: Randall Alex M.D.
== END | disposition home or self-care (01) ==
LOC: RADMAMWWP 16:28
PROVIDERS: ATTEND Obstetrics & Gynecology
DX: Z12.31 Encounter for screening mammogram for malignant neoplasm of breast (principal); R92.333 Mammographic heterogeneous density, bilateral breasts; Z78.0 Asymptomatic menopausal state
CPT/HCPCS: 77063; 77067